=== PATIENT | male | born 2000 | race Caucasian/White ===

== ENCOUNTER 2019-04-01 08:19 | Day surgery (SDC) | payer OTHER ==
[2019-04-01] MEDS ORDERED: LACTATED RINGER'S 1,000 ML IV (09:30)
[2019-04-01] MEDS ORDERED: PROPOFOL 20 ML ×2 (10:39→10:52)
[2019-04-01] MEDS: FAMOTIDINE 20 MG INJ IV (11:17)
[2019-04-01] MEDS ORDERED: DIPHENHYDRAMINE 50 MG INJ IV (11:30)
[2019-04-01] MEDS ORDERED: METOCLOPRAMIDE 10 MG INJ IV (11:30)
[2019-04-01] MEDS ORDERED: OXYCODONE/ACETAMINOPHEN (5/325) TAB PO ×2 (11:30)
[2019-04-01] MEDS ORDERED: MEPERIDINE 25 MG INJ IV (11:30)
[2019-04-01] MEDS ORDERED: MIDAZOLAM 1 MG/ML 2 ML INJ IV (11:30)
[2019-04-01] MEDS ORDERED: FENTAnyl 50 MCG/ML VIAL IV ×3 (11:30)
[2019-04-01] MEDS ORDERED: ONDANSETRON 4 MG INJ IV (11:30)
== END 2019-04-01 12:44 | disposition home or self-care (01) ==
LOC: GIL 08:19 → SDS 08:19 → GIL 12:44
DX: K44.9 Diaphragmatic hernia without obstruction or gangrene (principal); K22.10 Ulcer of esophagus without bleeding; K25.7 Chronic gastric ulcer without hemorrhage or perforation; K29.80 Duodenitis without bleeding
CPT/HCPCS: 43239; 88305; 88312